=== PATIENT | female | born 1975 | race African-American/Black ===

== ENCOUNTER 2018-11-11 14:22 | Emergency (ER) | payer OTHER ==
[~2018-11-11] VITALS: Ht 157.5 cm; Wt 99.8 kg
[2018-11-11 14:26] VITALS: BP 144/89
[2018-11-11] MEDS ORDERED: AMOXICILLIN500 MG ORAL (14:38)
[2018-11-11] MEDS ORDERED: IBUPROFEN600 MG ORAL (14:38)
[2018-11-11] MEDS ORDERED: PROMETHAZINE-D118 ML ORAL (14:38)
[2018-11-11 14:40] VITALS: BP 140/75
--- NOTE | 2018-11-11 14:40 | NUR ---
ER DISCHARGE NOTE: Pt was seen due to sore throat. Patient is cleared to be discharged per PA, pt is aox4, on room air, with stable vital signs. pt was given dc and prescription instructions, pt was able to verbalize understanding, pt id band removed. pt is able to ambulate with steady gait. pt took all belongings.
--- NOTE | 2018-11-11 16:21 | Emergency Room Report ---
History of Present Illness General Chief Complaint: Sore Throat Source: Patient Present Illness HPI Patient is a 43-year-old female presenting for sore throat, cough, and subjective fevers for the past 1 week. She does admit to recent airline travel from [place]. She has been taking Sudafed which has not been helping. Pain is an 8 out of 10 dull ache to the throat and worse with swallowing and coughing. She denies other symptoms including nausea, vomiting, headache, hemoptysis, shortness of breath Allergies: Coded Allergies: No Known Allergies (Unverified , 11/11/18) Patient History Past Medical History: see triage record Pertinent Family History: none Last Menstrual Period: 10/20/18 Reviewed Nursing Documentation: PMH: Agreed; PSxH: Agreed Nursing Documentation-PMH Past Medical History: No Stated History Review of Systems All Other Systems: negative except mentioned in HPI Physical Exam Vital Signs Date Time Temp Pulse Resp B/P (MAP) Pulse Ox O2 Delivery O2 Flow Rate FiO2 11/11/18 14:26 98.2 72 18 144/89 (107) 100 Room Air Sp02 EP Interpretation: reviewed, normal General Appearance: no apparent distress, alert, GCS 15, non-toxic Head: normocephalic, atraumatic ENT: uvula midline, tonsillar swelling, pharyngeal erythema Neck: full range of motion, supple/symm/no masses Respiratory: chest non-tender, lungs clear, normal breath sounds, speaking full sentences Cardiovascular #1: regular rate, rhythm, no edema Musculoskeletal: back normal, gait/station normal, normal range of motion Neurologic: alert, oriented x3, responsive, motor strength/tone normal, sensory intact, speech normal Psychiatric: judgement/insight normal, memory normal, mood/affect normal, no suicidal/homicidal ideation Skin: no rash Lymphatic: adenopathy Medical Decision Making PA Attestation Dr. Jeong is my supervising physician. Patient management was discussed with my supervising physician Diagnostic Impression: Primary Impression: Pharyngitis Qualified Codes: J02.9 - Acute pharyngitis, unspecified ER Course Patient is a 43-year-old female presenting for sore throat, cough, and subjective fevers for the past 1 week Differential diagnosis include but not limited to pharyngitis, sinusitis, AOM, bronchitis, PNA Physical exam: Vitals within normal limits. Afebrile. No apparent distress HEENT exam: There is bilateral tonsillar edema, erythema. Uvula midline. Moist mucous membranes. There is bilateral cervical lymphadenopathy. Lungs are clear to auscultation bilaterally Skin is warm and dry. No rash The patient will be discharged home with a prescription for amoxicillin and is given ER precautions. Patient will followup with primary care Last Vital Signs Date Time Temp Pulse Resp B/P (MAP) Pulse Ox O2 Delivery O2 Flow Rate FiO2 11/11/18 14:40 97.9 86 16 140/75 97 Room Air Status: improved Disposition: HOME, SELF-CARE Condition: Improved Scripts Amoxicillin* (AMOXIL*) 500 Mg Capsule 500 MG ORAL Q12HR, #20 CAP Prov: ERICH COOPER P.A. 11/11/18 D-Methorphan Hb/Prometh Hcl* (PROMETHAZINE-DM SYRUP*) 118 Ml Syrup 5 ML ORAL Q6H PRN for For Cough, #118 ML 0 Refills Prov: ABNERANERICH P.A. 11/11/18 Ibuprofen* (MOTRIN*) 600 Mg Tablet 600 MG ORAL Q8H PRN for For Pain, #30 TAB 0 Refills Prov: TERZIANERICH P.A. 11/11/18 Referrals: NOT CHOSEN IPA/MD,REFERRING (PCP) Patient Instructions: Pharyngitis, Sore Throat Additional Instructions: I discussed my findings with the patient. All questions and concerns have been answered. Treatment and medication compliance have been addressed. I advised the patient that they need to follow up with PMD in 3-5 days. Return to ED if pain remains or worsens, cough worsens or remains, you notice blood in your sputum, you notice wheezing, you experience a fever, or if needed for any reason. Patient verbalized understanding of discharge instructions. ERICH COOPER Nov 11, 2018 16:21
== END 2018-11-11 14:40 | disposition home or self-care (01) ==
LOC: EMR 14:35
DX: J02.9 Acute pharyngitis, unspecified (principal)
CPT/HCPCS: 99282